=== PATIENT | male | born 1985 | race Caucasian/White ===

== ENCOUNTER 2018-04-13 00:34 | Emergency (ER) | payer SELFPAY ==
[2018-04-13 00:50] VITALS: BP 130/91
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
[2018-04-13] MEDS ORDERED: AMOXICILLIN/POT 875/125 1 EACH PO ONE (01:18)
--- NOTE | 2018-04-13 06:50 | Diagnostic Imaging Report ---
LULU GELLER [facility] [id number] [facility] [address] [id number] Report Submission Date: Apr 13, 2018 1:29:13 AM UNDERGROUND ROOF BOLTER Patient Study Name: PANCHO BRONSON Date: Apr 13, 2018 1:00:20 AM UNDERGROUND [employer]OO[employer]OL[employer] Modality Type: DX Gender: M Description: LOWER EXTREMITY : 87 Institution: [facility] Physician: LULU GELLER Three views right foot Clinical history: Injury 4 days ago to the 1st toe with persistent pain. Findings: Examination of the right foot in plantar, lateral and oblique views demonstrates metallic foreign body in the soft tissues adjacent to the 1st proximal phalanx. There is no evident fracture and no lytic or blastic lesion. Small calcaneal spur is present at site of insertion of the Achilles tendon. Impression: 1. Metallic foreign body in the soft tissues. 2. Calcaneal spur. 3. No fracture. Electronically signed on Apr 13, 2018 1:29:13 AM UNDERGROUND ROOF BOLTER by: Marty LAWRENCE
== END 2018-04-13 01:43 | disposition home or self-care (01) ==
LOC: ED 00:34
DX: L03.031 Cellulitis of right toe (principal)
CPT/HCPCS: 73630; 99282; 99283